=== PATIENT | male | born 1960 | race Hispanic/Latino ===

== ENCOUNTER 2024-04-21 13:10 | Inpatient (IN) | payer SELFPAY ==
[2024-04-21] VITALS (13 sets, daily range): BP systolic 120–151; BP diastolic 63–99; PULSE 78–132; RESP 16–32; TEMP 37.2–37.3; O2SAT 93–98; BMI 27.1
--- NOTE | 2024-04-21 14:18 | EDS_ITS ---
HPI History of Present Illness Chief Complaint: General Illness Narrative Narrative: Chief complaint and HPI: Cough and flulike symptoms. 63-year-old male with no significant past medical history presents for evaluation of cough and flulike symptoms. patient states for the past 8 days he has been having cough, body aches, sore throat, headache. He states that he was seen at an outlying facility and tested for COVID, flu, RSV which was negative patient states he has been taking Tylenol and ibuprofen as needed. He has not taken anything for the cough. Patient states that his cough is not improved which is why he presents today. He denies any fever, chills, chest pain, shortness of breath abdominal pain, nausea, vomiting, dysuria. Review of systems: See HPI Medications: As listed on the chart Allergies: As listed on the chart PFSH: Per chart Vital signs: As listed on the chart. Reviewed. Physical exam: Gen: A&O x3, NAD Head: Normocephalic, atraumatic Eyes: No sclera icterus, conjunctiva clear, PERRL, EOMI ENT: TMs clear BL, moist mucous membranes, posterior oropharynx unremarkable, uvula midline, tonsils not enlarged, no tonsillar exudates Neck: Trachea midline, No JVD, Full ROM, No meningismus CV: RRR, no murmurs, no peripheral edema Resp: Lungs CTA BL, no w/r/c GI: Abd soft, non-distended, non-tender, no r/r/g Musc: Full ROM, no deformity Skin: Warm, dry, no rash Neuro: Alert, oriented, grossly intact, sensation intact Psych: Cooperative, appropriate mood and affect PFS PFSH Medical History no medical history Home Medications ?Medication ?Instructions ?Recorded ?Last Taken ?Type NK 04/21/24 Unknown History Allergy/AdvReac Type Severity Reaction Status Date / Time No Known Allergies Allergy Verified 04/21/24 13:11 Social History Smoking Status: Never smoker EXAM Physical Exam Const Vital Signs: 04/21/24 13:11 04/21/24 13:32 04/21/24 15:17 Temperature 98.9 F Temperature Source Oral Pulse Rate 78 91 Respiratory Rate 16 18 Respiratory Effort Normal Non-Labored Respiratory Pattern Normal Blood Pressure 134/78 H 146/77 H Blood Pressure Mean 96 100 Pulse Ox 98 97 Oxygen Delivery Method Room Air Room Air 04/21/24 16:39 04/21/24 17:00 Temperature 99.2 F H Temperature Source Pulse Rate 128 H 124 H Respiratory Rate 25 H 25 H Respiratory Effort Respiratory Pattern Blood Pressure 120/99 H Blood Pressure Mean 106 Pulse Ox 94 94 Oxygen Delivery Method Room Air MDM MDM MDM Narrative Medical decision making narrative: 63-year-old male with no significant past medical history presents for evaluation of cough and flulike symptoms. Differential diagnosis includes but is not limited to pneumonia, influenza, COVID-19, bronchitis, other viral illness. Patient is nontoxic-appearing. Physical exam unremarkable. Given duration of symptoms will obtain basic labs as well as chest x-ray and repeat COVID, flu, RSV testing. CBC with mild leukocytosis of 12. No anemia. BMP shows mild hyponatremia without SHIRA. Patient has hyperglycemia 477. Patient has no history of diabetes. With his hyperglycemia concern is for new onset diabetes. Will need to rule out DKA. Patient does not have a anion gap on his BMP but his bicarb is low. NS bolus ordered with 5 units IV insulin. VBG, acetone, UA, hemoglobin A1c ordered. Hemoglobin A1c is 10.6. Patient has diabetes. UA is positive for glucose and ketones. Negative for UTI. Small acetone level. Patient's VBG shows a pH of 7.28, bicarb 14. This is consistent with DKA. Repeat glucose downtrending at 306. Given patient's improving glucose as well as nonanion gap we will withhold insulin drip at this time. Patient is positive for influenza. Chest x-ray shows concern for pneumonia. It may be secondary to patient's influenza however given the duration of symptoms cannot rule out bacterial infection therefore Rocephin and azithromycin ordered for community- acquired pneumonia. Patient will warrant admission for his new onset diabetes with DKA. He confirmed understand the plan. Patient was discussed with Dr. Caballero the hospitalist. She agrees with withholding insulin drip at this time. She recommended getting repeat BMP to assess if patient should be placed in ICU or PCU. Patient became tachycardic into the 120s. His temperature is increasing. Tylenol ordered with EKG. Patient not having any chest pain. EKG reviewed see below. Repeat BMP shows nonanion gap acidosis with improvement in glucose. Hospice service was recontacted and patient was discussed with Dr. Caballero. Per Dr. Caballero, Dr. Quan accepted admission. He would like insulin drip as well as ICU admission. Patient will be transferred to the ICU and insulin drip will be started. EKG: Interpreted by me/EM physician: EKG shows sinus tachycardia with heart rate 125. No acute ischemic changes Diagnostic: Interpreted by me/EM physician: Right lower lung infiltrate concerning for pneumonia Impression: 1. New onset diabetes with DKA 2. Influenza infection 3. Pneumonia 4. Mild dehydration/hyponatremia Lab Data Labs: Laboratory Results - last 24 hr 04/21/24 04/21/24 04/21/24 14:25 15:35 15:48 WBC 12.0 H RBC 4.84 Hgb 14.2 Hct 41.3 MCV 85.3 MCH 29.3 MCHC 34.4 RDW Std Deviation 39.0 RDW Coeff of Gertrudis 12.5 Plt Count 442 MPV 10.1 Immature Gran % (Auto) 1.000 H Neut % (Auto) 77.2 H Lymph % (Auto) 10.2 L [place] % (Auto) 11.1 H Eos % (Auto) 0.0 Baso % (Auto) 0.5 Absolute Neuts (auto) 9.2 H Absolute Lymphs (auto) 1.22 Nucleated RBC % 0 Sodium 131 L Potassium 3.9 Chloride 102 Carbon Dioxide 14.0 L Anion Gap 15 BUN 19 H Creatinine 0.99 Estim Creat Clear Calc 66.07 Est GFR (MDRD) Af Amer 98 Est GFR (MDRD) Non-Af 81 BUN/Creatinine Ratio 19.1 Glucose 477 H* Hemoglobin A1c 10.6 H Serum Osmolality 342 H Calcium 10.0 Urine Color Yellow Urine Clarity Clear Urine pH 6.0 Ur Specific [place] 1.015 Urine Protein 30 H Urine Glucose (UA) 1000 H Urine Ketones 150 A* Urine Occult Blood 10 H Urine Nitrite Negative Urine Bilirubin Negative Urine Urobilinogen Normal Ur Leukocyte Esterase Negative Urine RBC 0-5 SEEN Urine WBC 0 SEEN Ur Squamous Epith Cells 0-5 SEEN Urine Bacteria 0 SEEN Urine Mucus 0 SEEN Acetone Level SMALL H POC Glucose 04/21/24 16:45 WBC RBC Hgb Hct MCV MCH MCHC RDW Std Deviation RDW Coeff of Gertrudis Plt Count MPV Immature Gran % (Auto) Neut % (Auto) Lymph % (Auto) [place] % (Auto) Eos % (Auto) Baso % (Auto) Absolute Neuts (auto) Absolute Lymphs (auto) Nucleated RBC % Sodium Potassium Chloride Carbon Dioxide Anion Gap BUN Creatinine Estim Creat Clear Calc Est GFR (MDRD) Af Amer Est GFR (MDRD) Non-Af BUN/Creatinine Ratio Glucose Hemoglobin A1c Serum Osmolality Calcium Urine Color Urine Clarity Urine pH Ur Specific [place] Urine Protein Urine Glucose (UA) Urine Ketones Urine Occult Blood Urine Nitrite Urine Bilirubin Urine Urobilinogen Ur Leukocyte Esterase Urine RBC Urine WBC Ur Squamous Epith Cells Urine Bacteria Urine Mucus Acetone Level POC Glucose 324 H ABG Data ABG results: ABG 04/21/24 15:59 Specimen Type BALA Sample Site Not entered VBG pH 7.28 L VBG pO2 43 H VBG HCO3 14 L VBG Total CO2 15 L VBG O2 Sat (Calc) 72 H VBG Base Excess -12 L POC Mix VBG pCO2 Pt Tmp 31.0 L O2 Delivery Device Not entered Radiography Diagnostic Testing: Clinical Impression(s) from Imaging Studies Chest X-Ray 04/21/24 14:45 IMPRESSION: Patchy airspace disease of the right lower lung field could be pneumonia. Reading Location: [facility] Discharge Plan Disposition Disposition: Acute Care Hospital [facility] Discharge Date/Time: 04/21/24 19:59
--- NOTE | 2024-04-21 14:45 | RAD_ITS ---
EXAM: XR Chest, 2 Views CLINICAL INDICATION: TECHNIQUE: Frontal and lateral views of the chest. COMPARISON: No relevant prior studies available. FINDINGS: LUNGS AND PLEURAL SPACES: Patchy airspace disease of the right lower lung field could be pneumonia. No pneumothorax. HEART: Unremarkable. No cardiomegaly. MEDIASTINUM: Unremarkable. Normal mediastinal contour. BONES/JOINTS: Unremarkable. No acute fracture. RAD/Chest PA and Lateral IMPRESSION: Patchy airspace disease of the right lower lung field could be pneumonia. [facility]
[2024-04-21 14:57] LABS: Absolute Lymphocyte Count 1.22 X10^3/uL (0.83-4.51); Absolute Neutrophil Count 9.2 X10^3/uL (2.0-7.7); Basophil# 0.06 X10^3/uL; Basophil% 0.5 % (0-1); Hematocrit 41.3 % (40-54); Hemoglobin 14.2 g/dL (13.0-16.5); Lymphocyte # 1.22 X10^3/ul (0.83-4.51); Lymphocyte % 10.2 % (19-41); Mean Corp Hgb Conc 34.4 g/dL (32-36); Mean Corpuscular Hgb 29.3 pg (27.0-32.0); Mean Corpuscular Volume 85.3 fL (80-94); Mean Platelet Vol. 10.1 fl (6.2-12.0); Monocyte# 1.33 X10^3/uL; Monocyte% 11.1 % (0-10); NRBC Flagged by Analyzer 0 % (0-5); Neutrophil # 9.23 X10^3/uL (2.7-7.7); Neutrophil % 77.2 % (47-70); Platelet Count 442 K/mm3 (150-450); RBC Distribution Width CV 12.5 % (11.6-14.6); Red Blood Count 4.84 M/mm3 (4.6-6.2)
[2024-04-21 14:58] LABS: Anion Gap 15 (5-15); BUN 19 mg/dL (7-18); BUN/Creat Ratio 19.1 RATIO (10-20); Chloride 102 mmol/L (98-107); Creatinine, Serum 0.99 mg/dL (0.70-1.30); EST Glomerular Filtration Rate 81 mL/min (>60); Est Glom Filt Rate - Afr Amer 98 mL/min (>60); Estimated Creatinine Clearance 66.07 ml/min; Glucose 477 mg/dL (74-106); Potassium 3.9 mmol/L (3.5-5.1); Sodium Level 131 mmol/L (136-145)
[2024-04-21] MEDS: 0.9% Normal Saline (1000mL) 1,000 ML 1000 ML IV (15:35)
[2024-04-21 15:53] LABS: Bacteria 0 SEEN /hpf (None Seen); Mucous, Urine 0 SEEN /hpf (<or=2+); White Blood Cells 0 SEEN /hpf (0-5)
[2024-04-21] MEDS: Insulin Lispro 100 UNIT/ML VIAL (ADMELOG) IV (15:59)
[2024-04-21 16:02] LABS: Color, Urine Yellow (Yellow); Glucose, Dipstick 1000 mg/dl (Normal); Leukocyte Esterase-Dipstick Negative /ul (Negative); Nitrite-Dipstick Negative (Negative); Occult Blood-Urine 10 /ul (Negative); Protein-Dipstick 30 mg/dl (Negative); Specific Gravity, Urine 1.015 (1.002-1.030); Urine Bilirubin Dipstick Negative (Negative); Urine Clarity Clear (Clear); Urine Urobilinogen Normal (Normal)
[2024-04-21 16:03] LABS: Blood Gas Specimen Type VEN; O2 Delivery Device Not entered; SITE Not entered; VBG BASE EXCESS -12 mmol/L (-1.0-3.5); VBG Bicarbonate 14 mmol/L (22-26); VBG PO2 43 mmHg (25-40); VBG SO2 72 % (50-70); VBG TCO2 15 mmol/L (23-33); VBG pH 7.28 (7.32-7.42)
[2024-04-21 16:15] LABS: Ketone-Dipstick 150 mg/dl (Negative)
[2024-04-21 16:23] LABS: Red Blood Cells-Urine 0-5 SEEN /hpf (0-5); Squamous Epithelial Cells - UA 0-5 SEEN /hpf (0-5)
[2024-04-21 16:46] LABS: Hemoglobin A1c 10.6 % (3.8-5.6)
[2024-04-21 17:04] LABS: Bedside Glucose 324 mg/dL (74-106)
--- NOTE | 2024-04-21 17:05 | EKG12_ITS ---
Test Reason : REPEAT Blood Pressure : */* mmHG Vent. Rate : 125 BPM Atrial Rate : 125 BPM P-R Int : 126 ms QRS Dur : 70 ms QT Int : 270 ms P-R-T Axes : 65 67 41 degrees QTcB Int : 389 ms Sinus tachycardia Otherwise normal ECG Confirmed by ZOYA RHODES, TAMIA ([id number]), editor continuity and script CECY GOYAL ([id number]) on 04/23/2024 7:07:04 AM Referred By: Confirmed By: TAMIA KENNY MD
[2024-04-21] MEDS: Acetaminophen 500 MG Tablet 1000 MG PO (17:10)
[2024-04-21] MEDS: Ceftriaxone 1 GM/50 ML BAG IV (17:13)
--- NOTE | 2024-04-21 17:20 | HP.PCM.HOS_ITS ---
HPI - General General Date of Admission: 04/21/24 Date of Service: 04/21/24 Chief Complaint: fever, cough, flulike symptoms for 9 days HPI Narrative ROSY STOCKTON, is a 63 M came to ED with URI symptoms of cough fever flulike symptoms for 9 days. Patient has limited understanding of [place] language mainly Irish language. He has never been diagnosed with diabetes and does not know about diabetes. Patient is coughing up yellowish thick sputum getting worse in 9 days. Mild nausea and sometimes vomiting. In ED, he was found sinus tachycardia, flu positive. Also found in DKA with glucose of 477, anion gap 15 and bicarb 14. Patient is being admitted in ICU [facility] Medical History no medical history Home Medications ?Medication ?Instructions ?Recorded ?Last Taken ?Type NK 04/21/24 Unknown History Allergy/AdvReac Type Severity Reaction Status Date / Time No Known Allergies Allergy Verified 04/21/24 13:11 Social History Smoking Status: Never smoker ROS ROS Narrative Constitutional: Reports fatigue and weakness. No fever. HEENT: Reports systems reviewed and no addt'l complaints, except as documented Respiratory/Chest: URI and mild shortness of breath CVS: Denies cardiac disease or chronic lung disease. Denies smoking Gastrointestinal: No mild nausea and vomiting. Mild epigastric pain. Genitourinary: Denies burning urination or new urinary tract symptoms Musculoskeletal: Denies acute joint pain or limited range of motion. No acute injury Neurologic: Denies seizure-like symptoms. skin: No ulcer. No rash Endocrinology: Reports systems reviewed and no addt'l complaints, except as documented Hematologic/Lymphatic: Reports systems reviewed and no addt'l complaints, except as documented Rest 14 ROS are negative except as mentioned in HPI Vital Signs Vital Signs Vital Signs: 04/21/24 13:11 04/21/24 13:32 04/21/24 15:17 Temperature 98.9 F Temperature Source Oral Pulse Rate 78 91 Respiratory Rate 16 18 Respiratory Effort Normal Non-Labored Respiratory Pattern Normal Blood Pressure 134/78 H 146/77 H Blood Pressure Mean 96 100 Pulse Ox 98 97 Oxygen Delivery Method Room Air Room Air 04/21/24 16:39 04/21/24 17:00 Temperature 99.2 F H Temperature Source Pulse Rate 128 H 124 H Respiratory Rate 25 H 25 H Respiratory Effort Respiratory Pattern Blood Pressure 120/99 H Blood Pressure Mean 106 Pulse Ox 94 94 Oxygen Delivery Method Room Air Weight Weight: 148 lb Body Mass Index (BMI) 27.1 Physical Exam Narrative General: Alert, Oriented x3, Cooperative, BMI 27.1 kg/m? HEENT: Atraumatic, PERRLA, EOMI, Normocephalic Oral: Oral mucosa dry no Gingival or Mucosal Lesions/ Ulcerations Neck: Supple, No JVD, Negative Carotid Bruits Chest wall/Lungs: Air entry diminished in bilateral lung bases. No crepitation/rhonchi Cardiovascular: Sinus tachycardia, normal S1, Normal S2, No M/G/R Abdomen: Bowel Sounds Present, Soft, mild epigastric tenderness, Non-Distended : No dysuria. No renal angle tenderness. No suprapubic tenderness. Extremities: No edema, Capillary Refill Less than 3 Seconds Skin: No rashes, No breakdown Musculoskeletal: No Tenderness to Palpation of Joints or Extremities Neurological: Cranial nerves II-XII grossly intact, DTR 2+/4. No acute focal neurological deficit. Psych/Mental Status: Flat Results Lab / Micro Data 04/21/24 14:25 04/21/24 14:25 Labs: Laboratory Results - last 24 hr 04/21/24 14:25: WBC 12.0 H, RBC 4.84, Hgb 14.2, Hct 41.3, MCV 85.3, MCH 29.3, MCHC 34.4, RDW Std Deviation 39.0, RDW Coeff of Gertrudis 12.5, Plt Count 442, MPV 10.1, Immature Gran % (Auto) 1.000 H, Neut % (Auto) 77.2 H, Lymph % (Auto) 10.2 L, [place] % (Auto) 11.1 H, Eos % (Auto) 0.0, Baso % (Auto) 0.5, Absolute Neuts (auto) 9.2 H, Absolute Lymphs (auto) 1.22, Nucleated RBC % 0, Sodium 131 L, Potassium 3.9, Chloride 102, Carbon Dioxide 14.0 L, Anion Gap 15, BUN 19 H, Creatinine 0.99, Estim Creat Clear Calc 66.07, Est GFR (MDRD) Af Amer 98, Est GFR (MDRD) Non-Af 81, BUN/Creatinine Ratio 19.1, Glucose 477 H*, Hemoglobin A1c 10.6 H, Calcium 10.0 04/21/24 15:35: Acetone Level SMALL H 04/21/24 15:48: Urine Color Yellow, Urine Clarity Clear, Urine pH 6.0, Ur Specific [place] 1.015, Urine Protein 30 H, Urine Glucose (UA) 1000 H, Urine Ketones 150 A*, Urine Occult Blood 10 H, Urine Nitrite Negative, Urine Bilirubin Negative, Urine Urobilinogen Normal, Ur Leukocyte Esterase Negative, Urine RBC 0-5 SEEN, Urine WBC 0 SEEN, Ur Squamous Epith Cells 0-5 SEEN, Urine Bacteria 0 SEEN, Urine Mucus 0 SEEN 04/21/24 16:45: POC Glucose 324 H Micro: Microbiology 04/21/24 14:40 Mucosa - Nose SARS-CoV-2, Influenza & RSV (PCR) - Final Influenzae A ABG Data ABG results: ABG 04/21/24 15:59 Specimen Type BALA Sample Site Not entered VBG pH 7.28 L VBG pO2 43 H VBG HCO3 14 L VBG Total CO2 15 L VBG O2 Sat (Calc) 72 H VBG Base Excess -12 L POC Mix VBG pCO2 Pt Tmp 31.0 L O2 Delivery Device Not entered Imaging Radiology Impression Chest X-Ray 04/21/24 14:45 IMPRESSION: Patchy airspace disease of the right lower lung field could be pneumonia. Reading Location: [facility] Assessment & Plan Assessment/Plan (1) DKA (diabetic ketoacidoses): (2) Influenza A: PLAN: Plan This atrial gentleman is being admitted for DKA, probably precipitated by influenza A 1. Undiagnosed diabetes mellitus, unclear classification and type with DKA: Patient is being admitted in ICU. IV fluid protocol and insulin drip as per DKA protocol. Anion gap is 15, bicarb 14. VBG shows 7.28/mixed pCO2 15 suggestive of DKA. Serum acetone positive. 2. Influenza A: Chest x-ray initially reviewed and shows patchy airspace disease in right lower lung field. Pneumonia workup. Patient started on Tamiflu to reduce the duration and severity of symptoms. On IV ceftriaxone and azithromycin. Pneumonia workup. 3. Mild abdominal pain and nausea and vomiting probably due to DKA: PPI ordered 4. DVT prophylaxis, moderate risk: Lovenox 40 m subcu daily ordered. Living will/advanced directive/end of life care: Patient does not have living will or advanced directive. After discussion of benefits/risks procedures involved with full code, DNR CC arrest and DNR CC, the patient opted for full code. Patient does want artificial life support including intubation, tube feed, ventilator and/chest compression, central venous catheter, vasopressor and DC shock if needed Total time spent in [id number] encounter in discussion of advanced directive 17 minutes. Microbiology Past 72 Hours 04/21/24 14:40 Mucosa - Nose SARS-CoV-2, Influenza & RSV (PCR) - Final Influenzae A Laboratory Results 04/21/24 14:25: WBC 12.0 H, RBC 4.84, Hgb 14.2, Hct 41.3, MCV 85.3, MCH 29.3, MCHC 34.4, RDW Std Deviation 39.0, RDW Coeff of Gertrudis 12.5, Plt Count 442, MPV 10.1, Immature Gran % (Auto) 1.000 H, Neut % (Auto) 77.2 H, Lymph % (Auto) 10.2 L, [place] % (Auto) 11.1 H, Eos % (Auto) 0.0, Baso % (Auto) 0.5, Absolute Neuts (auto) 9.2 H, Absolute Lymphs (auto) 1.22, Nucleated RBC % 0, Sodium 131 L, Potassium 3.9, Chloride 102, Carbon Dioxide 14.0 L, Anion Gap 15, BUN 19 H, Creatinine 0.99, Estim Creat Clear Calc 66.07, Est GFR (MDRD) Af Amer 98, Est GFR (MDRD) Non-Af 81, BUN/Creatinine Ratio 19.1, Glucose 477 H*, Hemoglobin A1c 10.6 H, Calcium 10.0 04/21/24 15:35: Acetone Level SMALL H 04/21/24 15:48: Urine Color Yellow, Urine Clarity Clear, Urine pH 6.0, Ur Specific [place] 1.015, Urine Protein 30 H, Urine Glucose (UA) 1000 H, Urine Ketones 150 A*, Urine Occult Blood 10 H, Urine Nitrite Negative, Urine Bilirubin Negative, Urine Urobilinogen Normal, Ur Leukocyte Esterase Negative, Urine RBC 0-5 SEEN, Urine WBC 0 SEEN, Ur Squamous Epith Cells 0-5 SEEN, Urine Bacteria 0 SEEN, Urine Mucus 0 SEEN 04/21/24 15:59: Specimen Type BALA, Sample Site Not entered, VBG pH 7.28 L, VBG pO2 43 H, VBG HCO3 14 L, VBG Total CO2 15 L, VBG O2 Sat (Calc) 72 H, VBG Base Excess -12 L, POC Mix VBG pCO2 Pt Tmp 31.0 L, O2 Delivery Device Not entered 04/21/24 16:45: POC Glucose 324 H 04/21/24 17:17: Sodium Pending, Potassium Pending, Chloride Pending, Carbon Dioxide Pending, Anion Gap Pending, BUN Pending, Creatinine Pending, Est GFR (MDRD) Af Amer Pending, Est GFR (MDRD) Non-Af Pending, BUN/Creatinine Ratio Pending, Glucose Pending, Calcium Pending, Magnesium Pending Clinical Impression(s) from Imaging Studies Chest X-Ray 04/21/24 14:45 IMPRESSION: Patchy airspace disease of the right lower lung field could be pneumonia. Charges/Coding Visit Charges Inpatient E&M: 32141 Init Hosp L3 Procedures Hospitalists Procedures: 11244 Advncd Care Plan 30 Min
[2024-04-21 17:48] LABS: Anion Gap 12 (5-15); BUN 16 mg/dL (7-18); BUN/Creat Ratio 17.2 RATIO (10-20); Calcium,Total 9.2 mg/dL (8.5-10.1); Chloride 108 mmol/L (98-107); Creatinine, Serum 0.93 mg/dL (0.70-1.30); EST Glomerular Filtration Rate 88 mL/min (>60); Est Glom Filt Rate - Afr Amer 106 mL/min (>60); Estimated Creatinine Clearance 70.33 ml/min; Glucose 318 mg/dL (74-106); Magnesium 2.3 mg/dL (1.6-2.6); Potassium 4.5 mmol/L (3.5-5.1); Sodium Level 134 mmol/L (136-145)
[2024-04-21] MEDS: Azithromycin 500 MG in 0.9% Normal Saline (250mL Bag) 250 ML 255 MG IV (17:59)
[2024-04-21 18:29] LABS: Phosphorus 1.7 mg/dL (2.5-4.9)
[2024-04-21] MEDS: Insulin Lispro 100 UNIT in 0.9% Normal Saline (100mL Bag) 99 ML 6.7 UNIT CONT INF (19:28)
--- NOTE | 2024-04-21 19:30 | ED.RN ---
This RN verified with Libertad Christianson RN insulin start drip titration. This RN also double checked with Dr Wilkinson that the drip was appropriate at 6.7ml/hr due to patient BG 306. Dr Wilkinson stated to watch his blood sugars closely.
[2024-04-21 19:35] LABS: Osmolality, Serum 342 mOsm/KG (280-301)
[2024-04-21 19:36] LABS: Bedside Glucose 306 mg/dL (74-106)
[2024-04-21 20:41] LABS: Bedside Glucose 227 mg/dL (74-106)
[2024-04-21] MEDS: Oseltamivir Phosphate 75 MG Capsule PO (20:44)
[2024-04-21] MEDS: guaiFENesin 1,200 MG Tablet 1200 MG PO (20:44)
[2024-04-21] MEDS: Dext 5%-0.45% NS 1,000 ML 150 ML IV (20:48)
[2024-04-21] MEDS: Pantoprazole Sodium 40 MG in 0.9% Normal Saline (100mL MB+) 100 ML 330 MG IV (20:49)
[2024-04-21] MEDS: Enoxaparin 40 MG/0.4 ML Syringe SC (20:56)
[2024-04-21 21:24] LABS: Bedside Glucose 200 mg/dL (74-106)
[2024-04-21 21:44] LABS: Anion Gap 10 (5-15); BUN 15 mg/dL (7-18); BUN/Creat Ratio 23.3 RATIO (10-20); Calcium,Total 9.3 mg/dL (8.5-10.1); Chloride 112 mmol/L (98-107); Creatinine, Serum 0.64 mg/dL (0.70-1.30); EST Glomerular Filtration Rate 134 mL/min (>60); Est Glom Filt Rate - Afr Amer 162 mL/min (>60); Estimated Creatinine Clearance 93.61 ml/min; Glucose 213 mg/dL (74-106); Potassium 4.1 mmol/L (3.5-5.1); Sodium Level 137 mmol/L (136-145)
[2024-04-21 22:24] LABS: Bedside Glucose 218 mg/dL (74-106)
[2024-04-21 23:18] LABS: Bedside Glucose 218 mg/dL (74-106)
[2024-04-22] VITALS (15 sets, daily range): BP systolic 125–166; BP diastolic 66–88; PULSE 86–118; RESP 10–25; TEMP 36.6–37.3; O2SAT 93–99; BMI 20.5
[2024-04-22 00:18] LABS: Bedside Glucose 195 mg/dL (74-106)
[2024-04-22 00:36] LABS: Anion Gap 8 (5-15); BUN 15 mg/dL (7-18); BUN/Creat Ratio 20.4 RATIO (10-20); Calcium,Total 9.5 mg/dL (8.5-10.1); Chloride 111 mmol/L (98-107); Creatinine, Serum 0.74 mg/dL (0.70-1.30); EST Glomerular Filtration Rate 115 mL/min (>60); Est Glom Filt Rate - Afr Amer 139 mL/min (>60); Estimated Creatinine Clearance 80.96 ml/min; Glucose 192 mg/dL (74-106); Potassium 3.2 mmol/L (3.5-5.1); Sodium Level 137 mmol/L (136-145)
[2024-04-22] MEDS: Potassium Chloride 10mEq/100mL 10 MEQ/100 ML IV.SOLN. 100 MEQ IV BOLUS ×4 (00:58→03:42)
[2024-04-22 01:22] LABS: Bedside Glucose 192 mg/dL (74-106)
[2024-04-22 02:21] LABS: Bedside Glucose 155 mg/dL (74-106)
[2024-04-22] MEDS: Dext 5%-0.45% NS 1,000 ML 150 ML IV (02:43)
[2024-04-22 03:18] LABS: Bedside Glucose 172 mg/dL (74-106)
[2024-04-22] MEDS: Acetaminophen 325 MG Tablet 650 MG PO ×2 (04:00→21:10)
[2024-04-22 04:17] LABS: Bedside Glucose 155 mg/dL (74-106)
[2024-04-22 04:48] LABS: Absolute Lymphocyte Count 0.88 X10^3/uL (0.83-4.51); Absolute Neutrophil Count 13.2 X10^3/uL (2.0-7.7); Basophil% 0.6 % (0-1); Hematocrit 37.1 % (40-54); Lymphocyte # 0.88 X10^3/ul (0.83-4.51); Lymphocyte % 5.6 % (19-41); Mean Corpuscular Hgb 29.1 pg (27.0-32.0); Mean Platelet Vol. 9.6 fl (6.2-12.0); Monocyte# 1.36 X10^3/uL; Monocyte% 8.7 % (0-10); NRBC Flagged by Analyzer 0 % (0-5); Neutrophil # 13.22 X10^3/uL (2.7-7.7); Neutrophil % 84.4 % (47-70); Platelet Count 430 K/mm3 (150-450); RBC Distribution Width CV 12.5 % (11.6-14.6); RBC Distribution Width SD 38.1 fl (35.1-43.9); Red Blood Count 4.47 M/mm3 (4.6-6.2); White Blood Count 15.7 K/mm3 (4.4-11.0)
[2024-04-22 05:07] LABS: Anion Gap 8 (5-15); BUN 13 mg/dL (7-18); BUN/Creat Ratio 22.1 RATIO (10-20); Calcium,Total 9.3 mg/dL (8.5-10.1); Chloride 111 mmol/L (98-107); Creatinine, Serum 0.59 mg/dL (0.70-1.30); EST Glomerular Filtration Rate 149 mL/min (>60); Est Glom Filt Rate - Afr Amer 180 mL/min (>60); Estimated Creatinine Clearance 101.54 ml/min; Glucose 157 mg/dL (74-106); Potassium 3.2 mmol/L (3.5-5.1); Sodium Level 136 mmol/L (136-145)
[2024-04-22 05:26] LABS: Bedside Glucose 148 mg/dL (74-106)
[2024-04-22 06:20] LABS: Bedside Glucose 225 mg/dL (74-106)
[2024-04-22 07:13] LABS: Bedside Glucose 228 mg/dL (74-106)
[2024-04-22 08:24] LABS: Bedside Glucose 221 mg/dL (74-106)
[2024-04-22] MEDS: Insulin Glargine-YFGN 100 UNIT/ML Pen 10 UNIT SC ×2 (09:01→21:17)
[2024-04-22] MEDS: KCL 40mEq in 0.9% NS 40 MEQ/1,000 ML IV.SOLN 100 MEQ IV (09:02)
[2024-04-22] MEDS: Na Biphos/Potassium Phosphate PACKET 1 PACKET PO ×3 (09:02→21:11)
--- NOTE | 2024-04-22 09:46 | PN.HOSP_ITS ---
Reason for Visit Reason for Visit: Diagnoses Type 2 diabetes mellitus with ketoacidosis without coma (04/21/24) Influenza due to other identified influenza virus with other respiratory manifestations (04/21/24) Objective Data Objective Data Vital Signs: Vital Signs Temp Pulse Resp BP Pulse Ox O2 Del Method 98.2 F 92 18 141/66 H 94 Room Air 04/22/24 06:07 04/22/24 06:07 04/22/24 06:07 04/22/24 06:07 04/22/24 06:07 04/22/24 06:07 Oxygen Delivery Method Room Air Weight: 123 lb 0.287 oz Body Mass Index (BMI) 20.5 Intake & Output: Intake and Output for Last 24 Hours 04/20/24 04/21/24 04/22/24 23:59 23:59 23:59 Intake Total 1427.57 / 1427.57 2435.33 / 2435.33 Balance 1427.57 / 1427.57 2435.33 / 2435.33 Lab / Micro Data 04/22/24 04:31 04/22/24 04:31 Labs: Laboratory Results - last 24 hr 04/21/24 14:25: WBC 12.0 H, RBC 4.84, Hgb 14.2, Hct 41.3, MCV 85.3, MCH 29.3, MCHC 34.4, RDW Std Deviation 39.0, RDW Coeff of Gertrudis 12.5, Plt Count 442, MPV 10.1, Immature Gran % (Auto) 1.000 H, Neut % (Auto) 77.2 H, Lymph % (Auto) 10.2 L, [place] % (Auto) 11.1 H, Eos % (Auto) 0.0, Baso % (Auto) 0.5, Absolute Neuts (auto) 9.2 H, Absolute Lymphs (auto) 1.22, Nucleated RBC % 0, Sodium 131 L, Potassium 3.9, Chloride 102, Carbon Dioxide 14.0 L, Anion Gap 15, BUN 19 H, Creatinine 0.99, Estim Creat Clear Calc 66.07, Est GFR (MDRD) Af Amer 98, Est GFR (MDRD) Non-Af 81, BUN/Creatinine Ratio 19.1, Glucose 477 H*, Hemoglobin A1c 10.6 H, Calcium 10.0 04/21/24 15:35: Serum Osmolality 342 H, Acetone Level SMALL H 04/21/24 15:48: Urine Color Yellow, Urine Clarity Clear, Urine pH 6.0, Ur Specific [place] 1.015, Urine Protein 30 H, Urine Glucose (UA) 1000 H, Urine Ketones 150 A*, Urine Occult Blood 10 H, Urine Nitrite Negative, Urine Bilirubin Negative, Urine Urobilinogen Normal, Ur Leukocyte Esterase Negative, Urine RBC 0-5 SEEN, Urine WBC 0 SEEN, Ur Squamous Epith Cells 0-5 SEEN, Urine Bacteria 0 SEEN, Urine Mucus 0 SEEN 04/21/24 16:45: POC Glucose 324 H 04/21/24 17:17: Sodium 134 L, Potassium 4.5, Chloride 108 H, Carbon Dioxide 13.0 L, Anion Gap 12, BUN 16, Creatinine 0.93, Estim Creat Clear Calc 70.33, Est GFR (MDRD) Af Amer 106, Est GFR (MDRD) Non-Af 88, BUN/Creatinine Ratio 17.2, Glucose 318 H, Calcium 9.2, Phosphorus 1.7 L, Magnesium 2.3 04/21/24 19:15: POC Glucose 306 H 04/21/24 20:21: POC Glucose 227 H 04/21/24 21:00: Sodium 137, Potassium 4.1, Chloride 112 H, Carbon Dioxide 15.0 L , Anion Gap 10, BUN 15, Creatinine 0.64 L, Estim Creat Clear Calc 93.61, Est GFR (MDRD) Af Amer 162, Est GFR (MDRD) Non-Af 134, BUN/Creatinine Ratio 23.3 H, G lucose 213 H, Calcium 9.3 04/21/24 21:01: POC Glucose 200 H 04/21/24 21:54: POC Glucose 218 H 04/21/24 23:00: POC Glucose 218 H 04/21/24 23:59: POC Glucose 195 H 04/22/24 00:10: Sodium 137, Potassium 3.2 L, Chloride 111 H, Carbon Dioxide 18.0 L, Anion Gap 8, BUN 15, Creatinine 0.74, Estim Creat Clear Calc 80.96, Est GFR (MDRD) Af Amer 139, Est GFR (MDRD) Non-Af 115, BUN/Creatinine Ratio 20.4 H, G lucose 192 H, Calcium 9.5 04/22/24 01:03: POC Glucose 192 H 04/22/24 02:02: POC Glucose 155 H 04/22/24 02:59: POC Glucose 172 H 04/22/24 03:58: POC Glucose 155 H 04/22/24 04:31: WBC 15.7 H, RBC 4.47 L, Hgb 13.0, Hct 37.1 L, MCV 83.0, MCH 29.1, MCHC 35.0, RDW Std Deviation 38.1, RDW Coeff of Gertrudis 12.5, Plt Count 430, MPV 9.6, Immature Gran % (Auto) 0.700, Neut % (Auto) 84.4 H, Lymph % (Auto) 5.6 L, [place] % (Auto) 8.7, Eos % (Auto) 0.0, Baso % (Auto) 0.6, Absolute Neuts (auto) 13.2 H, Absolute Lymphs (auto) 0.88, Nucleated RBC % 0, Sodium 136, Potassium 3.2 L, Chloride 111 H, Carbon Dioxide 18.0 L, Anion Gap 8, BUN 13, Creatinine 0.59 L, Estim Creat Clear Calc 101.54, Est GFR (MDRD) Af Amer 180, Est GFR (MDRD) Non-Af 149, BUN/Creatinine Ratio 22.1 H, Glucose 157 H, Calcium 9.3 04/22/24 04:58: POC Glucose 148 H 04/22/24 06:00: POC Glucose 225 H 04/22/24 06:55: POC Glucose 228 H 04/22/24 08:05: POC Glucose 221 H Micro: Microbiology 04/22/24 01:07 Nasal Secretion MRSA (PCR) - Final 04/21/24 14:40 Mucosa - Nose SARS-CoV-2, Influenza & RSV (PCR) - Final Influenzae A ABG Data ABG results: ABG 04/21/24 15:59 Specimen Type BALA Sample Site Not entered VBG pH 7.28 L VBG pO2 43 H VBG HCO3 14 L VBG Total CO2 15 L VBG O2 Sat (Calc) 72 H VBG Base Excess -12 L POC Mix VBG pCO2 Pt Tmp 31.0 L O2 Delivery Device Not entered Radiography Diagnostic Testing: Radiology Impression Chest X-Ray 04/21/24 14:45 IMPRESSION: Patchy airspace disease of the right lower lung field could be pneumonia. Reading Location: [facility] Physical Exam Narrative Patient stated he vomited twice at home. He was dehydrated. Complain of right lower chest pain on coughing, pleuritic chest pain Denies a smoking or marijuana. Physical exam General: Alert, Oriented x3, Cooperative, BMI 27.1 kg/m? HEENT: Atraumatic, PERRLA, EOMI, Normocephalic Oral: Oral mucosa dry no Gingival or Mucosal Lesions/ Ulcerations Neck: Supple, No JVD, Negative Carotid Bruits Chest wall/Lungs: Air entry diminished in bilateral lung bases. No crepitation/rhonchi Cardiovascular: Sinus tachycardia, normal S1, Normal S2, No M/G/R Abdomen: Bowel Sounds Present, Soft, mild epigastric tenderness, Non-Distended : No dysuria. No renal angle tenderness. No suprapubic tenderness. Extremities: No edema, Capillary Refill Less than 3 Seconds Skin: No rashes, No breakdown Musculoskeletal: No Tenderness to Palpation of Joints or Extremities Neurological: Cranial nerves II-XII grossly intact, DTR 2+/4. No acute focal neurological deficit. Psych/Mental Status: Flat Assessment & Plan Assessment/Plan (1) DKA (diabetic ketoacidoses): (2) Influenza A: PLAN: Plan This atrial gentleman is being admitted for DKA, probably precipitated by influenza A 1. Undiagnosed diabetes mellitus, unclear classification and type with DKA: Patient is being admitted in ICU. IV fluid protocol and insulin drip as per DKA protocol. Anion gap is 15, bicarb 14. VBG shows 7.28/mixed pCO2 15 suggestive of DKA. Serum acetone positive. 2/5: Anion gap closed x 2. Lantus insulin is ordered and insulin dropped to [place] for 4 hours. 1800 ADA diet ordered. Accu-Chek before meals and at bedtime with Humalog sliding scale coverage and hypoglycemia protocol. A1c 10.6% 2. Influenza A: Chest x-ray initially reviewed and shows patchy airspace disease in right lower lung field. Pneumonia workup. Patient started on Tamiflu to reduce the duration and severity of symptoms. On IV ceftriaxone and azithromycin. Pneumonia workup. MRSA nasal screen negative. 3. Mild abdominal pain and nausea and vomiting probably due to DKA: PPI ordered 2/5: Abdominal pain, nausea and vomiting has resolved. 4. DVT prophylaxis, moderate risk: Lovenox 40 m subcu daily ordered. Living will/advanced directive/end of life care: Patient does not have living will or advanced directive. After discussion of benefits/risks procedures involved with full code, DNR CC arrest and DNR CC, the patient opted for full code. Patient does want artificial life support including intubation, tube feed, ventilator and/chest compression, central venous catheter, vasopressor and DC shock if needed Total time spent in [id number] encounter in discussion of advanced directive 17 minutes. Microbiology Past 72 Hours 04/22/24 01:07 Nasal Secretion MRSA (PCR) - Final 04/21/24 14:40 Mucosa - Nose SARS-CoV-2, Influenza & RSV (PCR) - Final Influenzae A Laboratory Results 04/21/24 14:25: Hemoglobin A1c 10.6 H 04/21/24 15:35: Serum Osmolality 342 H, Acetone Level SMALL H 04/21/24 15:48: Urine Color Yellow, Urine Clarity Clear, Urine pH 6.0, Ur Specific [place] 1.015, Urine Protein 30 H, Urine Glucose (UA) 1000 H, Urine Ketones 150 A*, Urine Occult Blood 10 H, Urine Nitrite Negative, Urine Bilirubin Negative, Urine Urobilinogen Normal, Ur Leukocyte Esterase Negative, Urine RBC 0-5 SEEN, Urine WBC 0 SEEN, Ur Squamous Epith Cells 0-5 SEEN, Urine Bacteria 0 SEEN, Urine Mucus 0 SEEN 04/21/24 15:59: Specimen Type BALA, Sample Site Not entered, VBG pH 7.28 L, VBG pO2 43 H, VBG HCO3 14 L, VBG Total CO2 15 L, VBG O2 Sat (Calc) 72 H, VBG Base Excess -12 L, POC Mix VBG pCO2 Pt Tmp 31.0 L, O2 Delivery Device Not entered 04/21/24 16:45: POC Glucose 324 H 04/21/24 17:17: Sodium 134 L, Potassium 4.5, Chloride 108 H, Carbon Dioxide 13.0 L, Anion Gap 12, BUN 16, Creatinine 0.93, Estim Creat Clear Calc 70.33, Est GFR (MDRD) Af Amer 106, Est GFR (MDRD) Non-Af 88, BUN/Creatinine Ratio 17.2, Glucose 318 H, Calcium 9.2, Phosphorus 1.7 L, Magnesium 2.3 04/21/24 19:15: POC Glucose 306 H 04/21/24 20:21: POC Glucose 227 H 04/21/24 21:00: Sodium 137, Potassium 4.1, Chloride 112 H, Carbon Dioxide 15.0 L , Anion Gap 10, BUN 15, Creatinine 0.64 L, Estim Creat Clear Calc 93.61, Est GFR (MDRD) Af Amer 162, Est GFR (MDRD) Non-Af 134, BUN/Creatinine Ratio 23.3 H, G lucose 213 H, Calcium 9.3 04/21/24 21:01: POC Glucose 200 H 04/21/24 21:54: POC Glucose 218 H 04/21/24 23:00: POC Glucose 218 H 04/21/24 23:59: POC Glucose 195 H 04/22/24 00:10: Sodium 137, Potassium 3.2 L, Chloride 111 H, Carbon Dioxide 18.0 L, Anion Gap 8, BUN 15, Creatinine 0.74, Estim Creat Clear Calc 80.96, Est GFR (MDRD) Af Amer 139, Est GFR (MDRD) Non-Af 115, BUN/Creatinine Ratio 20.4 H, G lucose 192 H, Calcium 9.5 04/22/24 01:03: POC Glucose 192 H 04/22/24 02:02: POC Glucose 155 H 04/22/24 02:59: POC Glucose 172 H 04/22/24 03:58: POC Glucose 155 H 04/22/24 04:31: WBC 15.7 H, RBC 4.47 L, Hgb 13.0, Hct 37.1 L, MCV 83.0, MCH 29.1, MCHC 35.0, RDW Std Deviation 38.1, RDW Coeff of Gertrudis 12.5, Plt Count 430, MPV 9.6, Immature Gran % (Auto) 0.700, Neut % (Auto) 84.4 H, Lymph % (Auto) 5.6 L, [place] % (Auto) 8.7, Eos % (Auto) 0.0, Baso % (Auto) 0.6, Absolute Neuts (auto) 13.2 H, Absolute Lymphs (auto) 0.88, Nucleated RBC % 0, Sodium 136, Potassium 3.2 L, Chloride 111 H, Carbon Dioxide 18.0 L, Anion Gap 8, BUN 13, Creatinine 0.59 L, Estim Creat Clear Calc 101.54, Est GFR (MDRD) Af Amer 180, Est GFR (MDRD) Non-Af 149, BUN/Creatinine Ratio 22.1 H, Glucose 157 H, Calcium 9.3 04/22/24 04:58: POC Glucose 148 H 04/22/24 06:00: POC Glucose 225 H 04/22/24 06:55: POC Glucose 228 H 04/22/24 08:05: POC Glucose 221 H 04/22/24 11:36: POC Glucose 161 H Microbiology Past 72 Hours 04/21/24 14:40 Mucosa - Nose SARS-CoV-2, Influenza & RSV (PCR) - Final Influenzae A Laboratory Results 04/21/24 14:25: WBC 12.0 H, RBC 4.84, Hgb 14.2, Hct 41.3, MCV 85.3, MCH 29.3, MCHC 34.4, RDW Std Deviation 39.0, RDW Coeff of Gertrudis 12.5, Plt Count 442, MPV 10.1, Immature Gran % (Auto) 1.000 H, Neut % (Auto) 77.2 H, Lymph % (Auto) 10.2 L, [place] % (Auto) 11.1 H, Eos % (Auto) 0.0, Baso % (Auto) 0.5, Absolute Neuts (auto) 9.2 H, Absolute Lymphs (auto) 1.22, Nucleated RBC % 0, Sodium 131 L, Potassium 3.9, Chloride 102, Carbon Dioxide 14.0 L, Anion Gap 15, BUN 19 H, Creatinine 0.99, Estim Creat Clear Calc 66.07, Est GFR (MDRD) Af Amer 98, Est GFR (MDRD) Non-Af 81, BUN/Creatinine Ratio 19.1, Glucose 477 H*, Hemoglobin A1c 10.6 H, Calcium 10.0 04/21/24 15:35: Acetone Level SMALL H 04/21/24 15:48: Urine Color Yellow, Urine Clarity Clear, Urine pH 6.0, Ur Specific [place] 1.015, Urine Protein 30 H, Urine Glucose (UA) 1000 H, Urine Ketones 150 A*, Urine Occult Blood 10 H, Urine Nitrite Negative, Urine Bilirubin Negative, Urine Urobilinogen Normal, Ur Leukocyte Esterase Negative, Urine RBC 0-5 SEEN, Urine WBC 0 SEEN, Ur Squamous Epith Cells 0-5 SEEN, Urine Bacteria 0 SEEN, Urine Mucus 0 SEEN 04/21/24 15:59: Specimen Type BALA, Sample Site Not entered, VBG pH 7.28 L, VBG pO2 43 H, VBG HCO3 14 L, VBG Total CO2 15 L, VBG O2 Sat (Calc) 72 H, VBG Base Excess -12 L, POC Mix VBG pCO2 Pt Tmp 31.0 L, O2 Delivery Device Not entered 04/21/24 16:45: POC Glucose 324 H 04/21/24 17:17: Sodium Pending, Potassium Pending, Chloride Pending, Carbon Dioxide Pending, Anion Gap Pending, BUN Pending, Creatinine Pending, Est GFR (MDRD) Af Amer Pending, Est GFR (MDRD) Non-Af Pending, BUN/Creatinine Ratio Pending, Glucose Pending, Calcium Pending, Magnesium Pending Clinical Impression(s) from Imaging Studies Chest X-Ray 04/21/24 14:45 IMPRESSION: Patchy airspace disease of the right lower lung field could be pneumonia. Charges/Coding Visit Charges Inpatient E&M: 85652 Subs Hosp L3
[2024-04-22] MEDS: oxyCODONE 5 MG Tablet 2.5 MG PO (11:01)
--- NOTE | 2024-04-22 11:09 | CASEMGMT ---
RN ADRIENNE Assessment Face to Face with patient for initial transition planning/care coordination assessment. RN ADRIENNE introduced self and role at [facility], pt voices understanding. Pt is A&Ox4 and is resting comfortably in bed and is calm. Care providers, pharmacy, and demographics verified. Admitting dx: DKA LACE Strata: 1 PCP: No PCP. Provider list given. Pt states that he will get himself established. Specialists: Denies Preferred Pharmacy: Pt willing to use [facility] at time of DC. Pt does not have Rx benefits and per Margoth, is over income for CARLEEN. CM to follow for total Rx costs. Pt states that he should be able to afford his new medications and DM supplies. Pt states that he has a card he can use to pay for the prescriptions. Insurance: SP. Justin saw the pt and pt does not qualify for CARLEEN. Margoth reports that she has the pt set up with a payment plan through the hospital Prescription Benefit: None at this time. CM to follow. LNOK: Nivia Kenny (Niece), Dewayne (W) Living Arrangements: Pt lives with his and friend in a 2 story home with 3 steps to enter ADLs/IADLs: Reports ind. Pt works at [employer] Transportation: Self, niece. Denies concerns DME: Denies all current DME use. Pt is in the need a new DM supplies. Dr Quan refuses to sign Rx for this as he is off tomorrow and will not be the discharging MD. CM to follow for Rx signing by the new hospitalist for new BGM and supplies. HHC/SNF: Denies Hx or needs Pt?s goal: Return home Plan: Home with new DM supplies. Pt states that he feels safe returning home with his and friend once medically ready and denies further questions at this time. Pt denies the need for OP Tx or CCN. Pt states that he has a headache and minor CP. Pt RN notified. Pt thanks this RN CM and denies further concerns. CM to follow for total Rx costs as well as new DM supplies. Kenzie Everett RN, CM
[2024-04-22] MEDS: Ceftriaxone 2 GM in 0.9% Normal Saline (50mL MB+) 50 ML IV (11:31)
[2024-04-22] MEDS: guaiFENesin 1,200 MG Tablet 1200 MG PO ×2 (11:32→21:10)
[2024-04-22] MEDS: Pantoprazole Sodium 40 MG Tablet PO (11:32)
[2024-04-22] MEDS: Oseltamivir Phosphate 75 MG Capsule PO ×2 (11:33→21:10)
[2024-04-22] MEDS: Insulin Lispro 100 UNIT/ML INSULN.PEN SC ×3 (11:46→21:21)
[2024-04-22 11:54] LABS: Bedside Glucose 161 mg/dL (74-106)
[2024-04-22] MEDS: Azithromycin 500 MG in 0.9% Normal Saline (250mL Bag) 250 ML 255 MG IV (12:17)
--- NOTE | 2024-04-22 12:41 | CASEMGMT ---
Social Work SW met with pt and provided self pay resources. Informed pt of [employer], [employer], prescription assistance programs and [facility]. Pt denies any further concerns at this time. RYNE Cuevas
[2024-04-22 16:53] LABS: Bedside Glucose 198 mg/dL (74-106)
[2024-04-22] MEDS: Enoxaparin 40 MG/0.4 ML Syringe SC (21:13)
[2024-04-22] MEDS: 0.9% Saline Lock 10 ML Syringe IV (21:13)
[2024-04-22 22:21] LABS: Bedside Glucose 218 mg/dL (74-106)
[2024-04-23] MEDS: oxyCODONE 5 MG Tablet 2.5 MG PO ×3 (02:49→21:56)
[2024-04-23 03:06] VITALS: BP 161/79; PULSE 90; RESP 18; TEMP 37; O2SAT 93
[2024-04-23 04:47] LABS: Absolute Lymphocyte Count 1.21 X10^3/uL (0.83-4.51); Basophil# 0.03 X10^3/uL; Basophil% 0.2 % (0-1); Hematocrit 34.4 % (40-54); Hemoglobin 12.2 g/dL (13.0-16.5); Lymphocyte # 1.21 X10^3/ul (0.83-4.51); Lymphocyte % 8.5 % (19-41); Mean Corp Hgb Conc 35.5 g/dL (32-36); Mean Corpuscular Hgb 29.2 pg (27.0-32.0); Mean Corpuscular Volume 82.3 fL (80-94); Mean Platelet Vol. 9.4 fl (6.2-12.0); Monocyte# 0.93 X10^3/uL; Monocyte% 6.5 % (0-10); NRBC Flagged by Analyzer 0 % (0-5); Neutrophil # 12.04 X10^3/uL (2.7-7.7); Neutrophil % 84.3 % (47-70); Platelet Count 433 K/mm3 (150-450); RBC Distribution Width CV 12.5 % (11.6-14.6); Red Blood Count 4.18 M/mm3 (4.6-6.2); White Blood Count 14.3 K/mm3 (4.4-11.0)
[2024-04-23 05:09] LABS: Anion Gap 9 (5-15); BUN 12 mg/dL (7-18); BUN/Creat Ratio 29.8 RATIO (10-20); Calcium,Total 8.8 mg/dL (8.5-10.1); Chloride 108 mmol/L (98-107); EST Glomerular Filtration Rate 230 mL/min (>60); Est Glom Filt Rate - Afr Amer 278 mL/min (>60); Estimated Creatinine Clearance 153.06 ml/min; Glucose 182 mg/dL (74-106); Potassium 2.9 mmol/L (3.5-5.1); Sodium Level 138 mmol/L (136-145)
[2024-04-23] MEDS: Na Biphos/Potassium Phosphate PACKET 1 PACKET PO ×3 (05:48→21:57)
[2024-04-23] MEDS: Insulin Lispro 100 UNIT/ML INSULN.PEN SC ×4 (05:49→21:50)
[2024-04-23 06:18] LABS: Bedside Glucose 158 mg/dL (74-106)
[2024-04-23 07:50] VITALS: O2SAT 97
[2024-04-23 09:07] LABS: Phosphorus 1.5 mg/dL (2.5-4.9)
[2024-04-23 10:34] VITALS: BP 151/77; PULSE 94; RESP 18; TEMP 36.5; O2SAT 94
[2024-04-23] MEDS: Azithromycin 500 MG in 0.9% Normal Saline (250mL Bag) 250 ML 255 MG IV (10:43)
[2024-04-23] MEDS: guaiFENesin 1,200 MG Tablet 1200 MG PO ×2 (10:45→21:55)
[2024-04-23] MEDS: Oseltamivir Phosphate 75 MG Capsule PO ×2 (10:45→21:55)
[2024-04-23] MEDS: Pantoprazole Sodium 40 MG Tablet PO (10:45)
[2024-04-23] MEDS: Potassium Chloride Oral Tablet 20 MEQ 60 MEQ PO (10:56)
[2024-04-23] MEDS: Acetaminophen 325 MG Tablet 650 MG PO (10:56)
[2024-04-23] MEDS: Insulin Glargine-YFGN 100 UNIT/ML Pen 10 UNIT SC ×2 (10:59→21:49)
[2024-04-23] MEDS: 0.9% Saline Lock 10 ML Syringe IV (11:00)
--- NOTE | 2024-04-23 12:16 | NURSING ---
Pt stated he had an emesis about 5-10 min after giving him his scheduled meds and pain medication.
--- NOTE | 2024-04-23 12:30 | CASEMGMT ---
Addendum entered by Vandana Avalos 04/23/24 14:42: Pt requests an earlier appt, stating as early as possible, as he would like to go to work afterwards. Call placed back to [facility], appt changed to 04/29 @ 8:30 AM. This was changed on d/c plan. Pt also made aware and voices appreciation. Addendum entered by Vandnaa Avalos 04/23/24 14:27: Appt scheduled @ [facility] w/Justin, COMPENSATION ADMINISTRATOR, for 04/29 @ 11 AM. This was added to pt's dc plan. Pt made aware of appt. He states he can drive and plans to go to appt, as scheduled. He voices appreciation. Original Note: RYAN DELEON note: Per Dr Camilo, pt to discharge home on insulin. Jazmín RN, aware to do DM teaching as well as insulin administration. RYAN DELEON to room. Introduced self and role. Dr Camilo signed script for glucometer and this was provided to pt. However, pt does not have insurance. Pt given script, but also made aware of OTC glucometer option and made aware of locations this could be purchased. He voices appreciation. Discussed CCN and pt interested in referral. Referral order placed. Pt also provided w/CCN rac card w/contact info. Pt interested in appt @ [facility]. He denies other dc needs at this time. Anshu LEDESMA RN, CM
--- NOTE | 2024-04-23 12:40 | PN.HOSP_ITS ---
Reason for Visit Reason for Visit: Diagnoses Type 2 diabetes mellitus with ketoacidosis without coma (04/21/24) Influenza due to other identified influenza virus with other respiratory manifestations (04/21/24) Subjective Subjective Saw patient at bedside this morning. Patient was mildly uncomfortable appearing due to ongoing nausea, mild abdominal discomfort and mild chest pain due to persistent cough. Has not been able to eat or drink much due to minimal appetite and nausea. Feels similar to yesterday without much improvement. Denies any fevers or chills. Objective Data Objective Data Vital Signs: Vital Signs Temp Pulse Resp BP Pulse Ox O2 Del Method 97.7 F L 94 18 151/77 H 94 Room Air 04/23/24 10:34 04/23/24 10:34 04/23/24 10:34 04/23/24 10:34 04/23/24 10:34 04/23/24 10:34 Oxygen Delivery Method Room Air Weight: 54.7 kg Body Mass Index (BMI) 20.0 Intake & Output: Intake and Output for Last 24 Hours 04/21/24 04/22/24 04/23/24 23:59 23:59 23:59 Intake Total 1427.57 / 1427.57 3746.58 / 3746.58 120 / 120 Output Total 550 / 550 Balance 1427.57 / 1427.57 3196.58 / 3196.58 120 / 120 Lab / Micro Data 04/23/24 04:33 04/23/24 04:33 Labs: Laboratory Results - last 24 hr 04/22/24 16:17: POC Glucose 198 H 04/22/24 21:16: POC Glucose 218 H 04/23/24 04:33: WBC 14.3 H, RBC 4.18 L, Hgb 12.2 L, Hct 34.4 L, MCV 82.3, MCH 29.2, MCHC 35.5, RDW Std Deviation 38.0, RDW Coeff of Gertrudis 12.5, Plt Count 433, MPV 9.4, Immature Gran % (Auto) 0.500, Neut % (Auto) 84.3 H, Lymph % (Auto) 8.5 L, [place] % (Auto) 6.5, Eos % (Auto) 0.0, Baso % (Auto) 0.2, Absolute Neuts (auto) 12.0 H, Absolute Lymphs (auto) 1.21, Nucleated RBC % 0, Sodium 138, Potassium 2.9 L, Chloride 108 H, Carbon Dioxide 20.0 L, Anion Gap 9, BUN 12, Creatinine 0.40 L, Estim Creat Clear Calc 153.06, Est GFR (MDRD) Af Amer 278, Est GFR (MDRD) Non-Af 230, BUN/Creatinine Ratio 29.8 H, Glucose 182 H, Calcium 8.8, P hosphorus 1.5 L 04/23/24 05:49: POC Glucose 158 H Micro: Microbiology 04/22/24 16:25 Urine, Clean Catch Legionella Antigen - Final 04/22/24 16:25 Urine, Clean Catch Streptococcus pneumoniae Antigen (M - Final 04/22/24 01:07 Nasal Secretion MRSA (PCR) - Final 04/21/24 14:40 Mucosa - Nose SARS-CoV-2, Influenza & RSV (PCR) - Final Influenzae A Physical Exam Const alert, oriented x3 and average body habitus Constitutional Narrative: Middle-age male, mildly fatigued and uncomfortable appearing due to ongoing nausea but otherwise answering questions appropriately. General Appearance: cooperative HEENT normocephalic, head/scalp atraumatic, hearing grossly normal bilaterally and nasal mucous membranes and turbinates normal Eyes PERRL, EOMs intact bilaterally and conjunctivae normal Chest inspection of chest normal Resp normal respiratory effort and no use of accessory muscles Resp Narrative: Breathing comfortably on room air at rest. Good breath sounds bilaterally throughout. Cardio regular rate, regular rhythm, no murmurs and peripheral pulses 2+ throughout GI normal to inspection, nondistended, normoactive bowel sounds, soft to palpation, non-tender and non-distended Back/Spine normal ROM Extremity normal to inspection, full ROM and no pedal edema Skin no rashes or lesions noted Psych mental status grossly normal Mood & Affect: anxious Assessment & Plan Assessment/Plan (1) DKA (diabetic ketoacidoses): (2) Influenza A: PLAN: Plan Patient is a 63-year-old male who presented [facility] ED on 04/21/2024 with URI symptoms. 1. DKA, resolved; new onset type 2 diabetes mellitus ? Labs on admit with glucose 477, anion gap 15 and bicarb 14. Resolved on insulin drip. A1c 10.7%. Transitioned to Lantus 10 units twice daily and sliding scale insulin with meals as needed. Blood sugars have been well- controlled on this but notably patient has had fairly minimal p.o. intake due to flu infection. Will need to determine most cost effective insulin regimen for patient prior to discharge. Patient will likely be stable for discharge in the next 1 to 2 days once he is tolerating p.o. intake better. 2. Influenza A infection with concern for superimposed bacterial infection ? Influenza A positive in the ED. Chest x-ray showed patchy airspace disease of right lower lung field concerning for pneumonia. Patient with cough and significant sputum production. Will continue treatment with IV antibiotics and Tamiflu and plan for 7-day course of antibiotics total. Stable on room air. 3. Hypokalemia and hypophosphatemia ? Presume secondary to poor p.o. intake and electrolyte balances due to DKA. Repleting as needed. DVT prophylaxis: Lovenox CODE STATUS: Full code, verified Expected disposition: Home, 1 to 2 days Total clinical time spent by myself addressing the patient's medical issues, reviewing all the data, and collaborating with patient's care team: 35 minutes. Charges/Coding Visit Charges Inpatient E&M: 65435 Subs Hosp L2
[2024-04-23] MEDS: Loperamide 2 MG Capsule PO (15:14)
[2024-04-23] MEDS: Ondansetron 4 MG/2 ML Vial IV (15:14)
[2024-04-23] MEDS: Ceftriaxone 2 GM in 0.9% Normal Saline (50mL MB+) 50 ML IV (15:23)
[2024-04-23 15:30] VITALS: BP 142/82; PULSE 79; RESP 18; TEMP 36.4; O2SAT 96
[2024-04-23 16:37] LABS: Bedside Glucose 201 mg/dL (74-106)
[2024-04-23 17:06] LABS: Bedside Glucose 203 mg/dL (74-106)
[2024-04-23 21:00] VITALS: BP 151/88; PULSE 84; RESP 18; TEMP 37; O2SAT 94
[2024-04-23] MEDS: Enoxaparin 40 MG/0.4 ML Syringe SC (21:54)
[2024-04-23 22:17] LABS: Bedside Glucose 189 mg/dL (74-106)
[2024-04-24 03:59] VITALS: BMI 19.5
[2024-04-24] MEDS: Acetaminophen 325 MG Tablet 650 MG PO ×2 (04:40→15:52)
[2024-04-24 04:43] VITALS: BP 140/76; PULSE 87; RESP 16; TEMP 36.9; O2SAT 95
[2024-04-24] MEDS: Na Biphos/Potassium Phosphate PACKET 1 PACKET PO (06:19)
[2024-04-24 06:37] LABS: Bedside Glucose 130 mg/dL (74-106)
[2024-04-24 08:06] LABS: Albumin, Serum 1.9 g/dL (3.2-5.0); BUN 16 mg/dL (7-18); BUN/Creat Ratio 36.8 RATIO (10-20); Calcium,Total 8.8 mg/dL (8.5-10.1); Chloride 104 mmol/L (98-107); Creatinine, Serum 0.44 mg/dL (0.70-1.30); EST Glomerular Filtration Rate 211 mL/min (>60); Est Glom Filt Rate - Afr Amer 255 mL/min (>60); Estimated Creatinine Clearance 132.66 ml/min; Glucose 135 mg/dL (74-106); Phosphorus 2.4 mg/dL (2.5-4.9); Potassium 2.9 mmol/L (3.5-5.1); Sodium Level 137 mmol/L (136-145)
[2024-04-24 08:24] VITALS: O2SAT 97
[2024-04-24 09:00] VITALS: BP 143/79; PULSE 77; RESP 18; TEMP 36.3; O2SAT 93
--- NOTE | 2024-04-24 09:58 | DS.PCM_ITS ---
Providers Date of Admission: 04/21/24 Date of Discharge: 04/24/24 Primary Care Physician: HETAL Hernandez, CATTLE DIPPER-C Reason For Visit: DKA Diagnosis Discharge Diagnosis (1) DKA (diabetic ketoacidoses): Status: Acute Code(s): E11.10 - Type 2 diabetes mellitus with ketoacidosis without coma (2) Influenza A: Status: Acute Code(s): J10.1 - Influenza due to other identified influenza virus with other respiratory manifestations Medications at Discharge Home Medications insulin NPH isoph U-100 human 100 unit/mL (3 mL) subcutaneous pen (Novolin N FlexPen) 15 unit (0.15 mL) subcut BID #15 mL 04/24/24 metformin 500 mg tablet 500 mg PO BID 30 days #60 tabs 04/24/24 oseltamivir 75 mg capsule 75 mg PO BID 2 days #4 caps 04/24/24 Hospital Course Operations None Procedures EKG and - (Chest x-ray) Summary of Care Provided Minutes Spent on Discharge: 35 Hospital Course: Patient is a 63-year-old male who presented [facility] ED on 04/21/2024 with URI symptoms. Hospital course as noted below. Patient discharged home in stable condition on 04/24. 1. DKA, resolved; new onset type 2 diabetes mellitus ? Labs on admit with glucose 477, anion gap 15 and bicarb 14. Resolved on insulin drip. A1c 10.7%. Transitioned to Lantus 10 units twice daily and sliding scale insulin with meals as needed. Blood sugars well-controlled on this but notably patient had fairly minimal p.o. intake due to flu infection. Given his low BMI and fairly well-controlled sugars here, opted to treat with conservative regimen on discharge. Given financial considerations, discharged on NPH 15 units twice daily and metformin 500 mg twice daily. 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 Has outpatient follow-up appointment at [facility] on 04/29 and further changes can be made at that time as needed. 2. Influenza A infection with concern for superimposed bacterial infection ? Influenza A positive in the ED. Chest x-ray showed patchy airspace disease of right lower lung field concerning for pneumonia. Patient with cough and mild sputum production. Treated with Tamiflu and IV antibiotics while here, will opt to treat with 5-day course of Tamiflu but can discontinue antibiotics on discharge. Remained stable on room air during hospitalization. 3. Hypokalemia and hypophosphatemia ? Presume secondary to poor p.o. intake and electrolyte balances due to DKA. Repleted as needed. Total clinical time spent by myself addressing the patient's medical issues, reviewing all the data, and collaborating with patient's care team: 35 minutes. Physical Exam Const alert, oriented x3 and average body habitus Constitutional Narrative: Middle-age male, energy much improved from previous days, sitting up comfortably in bed in no acute distress. General Appearance: cooperative and comfortable HEENT normocephalic, head/scalp atraumatic, hearing grossly normal bilaterally and nasal mucous membranes and turbinates normal Eyes PERRL, EOMs intact bilaterally and conjunctivae normal Chest inspection of chest normal Resp normal respiratory effort and no use of accessory muscles Resp Narrative: Breathing comfortably on room air at rest. Good breath sounds bilaterally throughout. Cardio regular rate, regular rhythm, no murmurs and peripheral pulses 2+ throughout GI normal to inspection, nondistended, normoactive bowel sounds, soft to palpation, non-tender and non-distended Back/Spine normal ROM Extremity normal to inspection, full ROM and no pedal edema Skin no rashes or lesions noted Psych mental status grossly normal Weight / BMI Weight Weight: 53.2 kg Body Mass Index (BMI) 19.5 ABG / Lab / Microbiology Data 04/23/24 04:33 04/24/24 06:47 Laboratory: Laboratory Results - last 24 hr 04/23/24 12:57: POC Glucose 201 H 04/23/24 16:47: POC Glucose 203 H 04/23/24 21:48: POC Glucose 189 H 04/24/24 06:18: POC Glucose 130 H 04/24/24 06:47: Sodium 137, Potassium 2.9 L, Chloride 104, Carbon Dioxide 24.0, BUN 16, Creatinine 0.44 L, Estim Creat Clear Calc 132.66, Est GFR (MDRD) Af Amer 255, Est GFR (MDRD) Non-Af 211, BUN/Creatinine Ratio 36.8 H, Glucose 135 H, Calcium 8.8, Phosphorus 2.4 L, Albumin 1.9 L 04/24/24 11:58: POC Glucose 289 H Microbiology: Microbiology 04/23/24 17:15 Sputum, Expectorated/Coughed Gram Stain - Final 04/23/24 17:15 Sputum, Expectorated/Coughed Respiratory Culture - Preliminary Staphylococcus aureus 04/21/24 18:00 Blood Culture (Wb) - Anticubital Right Blood Culture - Preliminary No growth in 48 hours. 04/21/24 18:00 Blood Culture (Wb) - Anticubital Right Blood Culture - Preliminary No growth in 48 hours. 04/22/24 16:25 Urine, Clean Catch Legionella Antigen - Final 04/22/24 16:25 Urine, Clean Catch Streptococcus pneumoniae Antigen (M - Final 04/22/24 01:07 Nasal Secretion MRSA (PCR) - Final 04/21/24 14:40 Mucosa - Nose SARS-CoV-2, Influenza & RSV (PCR) - Final Influenzae A D/C Instructions DC O2, CPAP, BIPAP Needs Home O2 Discharge instructions: No Meaningful Use Info Meaningful Use Meaningful Use Diagnoses (Choose all that apply): None applicable Ischemic Stroke Statin Dosing Therapy Reference: STATIN DOSE THERAPY REFERENCE: * Patients > 75 years receive moderate or high dose statin therapy. * Patients 75 years or YOUNGER should receive HIGH intensity statin dose unless contraindicated. You will be required to document reason for non-treatment if statin daily dose does not meet guidelines. HIGH DOSE STATIN THERAPY DAILY Atorvastatin > than or = to 40 mg Rosuvastatin > than or = to 20 mg Amlodipine + Atorvastatin > than or = to 2.5/40 mg Ezetimibe + Simvastatin 10/80 mg Simvastatin 80mg Discharge Plan Admission Admit Date/Time: 04/21/24 17:12 Primary Reason for Your Visit: flulike symptoms Attending Provider: Umesh Camilo Primary Care Provider: Randy Fernández [facility] Consulting Providers: Sonu Quan Instructions Additional Instructions / Restrictions: Please take insulin NPH 15 units twice daily and metformin 1 tablet twice daily for your diabetes. Please take 2 more days of Tamiflu to complete a 5-day course for your flu infection. Follow up with your new primary care doctor next week as scheduled below. Discharge Orders/Prescriptions Prescriptions: New oseltamivir 75 mg Capsule 75 mg PO BID 2 Days Qty: 4 0RF metformin 500 mg tablet 500 mg PO BID 30 Days Qty: 60 0RF Novolin N FlexPen 100 unit/mL (3 mL) insulin pen 15 unit subcut BID Qty: 15 0RF Other Ambulatory Orders: Glucometer (Routine) Timeframe: 1 Day Location: Determined by Patient Ordered By: Dr. Umesh Camilo Referrals / Follow Up: Randy Fernández, CATTLE DIPPER-C [Primary Care Provider] - 04/29/24 8:30 am Disposition Disposition (needs filled in before D/C Order can be placed): Home, Self Care Charges/Coding Visit Charges Inpatient E&M: 98576 Disch Hosp >30min
--- NOTE | 2024-04-24 09:58 | DCINST_ITS ---
Discharge Instructions Diet Discharge Diet: No restrictions DC O2, CPAP, BIPAP needs Home O2 Discharge instructions: No Dressing / Incision Discharge Activity: No Restrictions Follow Up Care Test Results: Test results from this visit will be discussed in further detail at your follow- up appointment, if applicable. Discharge Plan Admission Admit Date/Time: 04/21/24 17:12 Primary Reason for Your Visit: flulike symptoms Attending Provider: Umesh Camilo Primary Care Provider: Randy Fernández Consulting Providers: Sonu Quan Instructions Additional Instructions / Restrictions: Please take insulin NPH 15 units twice daily and metformin 1 tablet twice daily for your diabetes. Please take 2 more days of Tamiflu to complete a 5-day course for your flu infection. Follow up with your new primary care doctor next week as scheduled below. Discharge Orders/Prescriptions Prescriptions: New oseltamivir 75 mg Capsule 75 mg PO BID 2 Days Qty: 4 0RF metformin 500 mg tablet 500 mg PO BID 30 Days Qty: 60 0RF Novolin N FlexPen 100 unit/mL (3 mL) insulin pen 15 unit subcut BID Qty: 15 0RF Other Ambulatory Orders: Glucometer (Routine) Timeframe: 1 Day Location: Determined by Patient Ordered By: Dr. Umesh Camilo Referrals / Follow Up: Randy Fernández, VANSTONE MACHINE OPERATOR-C [Primary Care Provider] - 04/29/24 8:30 am Disposition Disposition (needs filled in before D/C Order can be placed): Home, Self Care
[2024-04-24] MEDS: Ceftriaxone 2 GM in 0.9% Normal Saline (50mL MB+) 50 ML IV (10:08)
[2024-04-24] MEDS: Oseltamivir Phosphate 75 MG Capsule PO (10:13)
[2024-04-24] MEDS: guaiFENesin 1,200 MG Tablet 1200 MG PO (10:13)
[2024-04-24] MEDS: Pantoprazole Sodium 40 MG Tablet PO (10:13)
[2024-04-24] MEDS: Insulin Glargine-YFGN 100 UNIT/ML Pen 10 UNIT SC (10:16)
[2024-04-24] MEDS: Azithromycin 500 MG in 0.9% Normal Saline (250mL Bag) 250 ML 255 MG IV (11:04)
--- NOTE | 2024-04-24 11:38 | NURSING ---
This RN is aware of Vital Signs taken this morning at 9am by Aly Rollins, Student Nurse.
[2024-04-24] MEDS: Insulin Lispro 100 UNIT/ML INSULN.PEN SC (12:03)
[2024-04-24] MEDS: Ondansetron 4 MG/2 ML Vial IV (12:26)
[2024-04-24 12:53] LABS: Bedside Glucose 289 mg/dL (74-106)
[2024-04-24] MEDS: Potassium Chloride Oral Tablet 20 MEQ 60 MEQ PO (13:03)
--- NOTE | 2024-04-24 13:25 | CASEMGMT ---
Addendum entered by Vandana Avalos 04/24/24 14:00: Scripts for Novolin N Pen and Pen needles provided to Jazmín DAVIS, who will give to pt and Nivia ennis. Nivia to present these @ [facility] for purchase. Original Note: RYAN DELEON NOTE: Pt being discharged today. Pt will dc home on Insulin and nursing has been doing on-going education w/pt on DM and insulin administration. Discussed insulin and pricing with pt, as he is self-pay. Prices obtained from [facility] and [facility] pharmacy. Per Lexx, pharmacist @ [facility], they now have Reli-On Novolin N Pens that are $42.88/pen, OTC, and the pen needles are $9. He verified that they do have the Novolin N Pens in stock. They still have the option of insulin vials and syringes as well. Pt chose to get Insulin pen and pen needles @ [facility] and states he can afford to purchase these. Pt made aware scripts will be provided for both of these, and these can be presented to [facility] pharmacy to purchase. He states it will most likely be his nieceNivia, that will be going into [facility] to get this. RYAN DELEON placed call to pt's Nivia ennis, @ [phone], per pt's request, and she was made aware of above. Questions answered. She voices understanding. Also discussed glucometer and pricing @ [facility] and also @ [facility]. Glucometer, lancing device, lancets, 50 test strips, and alcohol swabs totals $33.94 from [facility] and pt states will get this from [facility], would like it delivered to his room, and would like education on this machine from nurse before discharging home. Nursing aware. Call placed to [facility]. In addition to the above stated cost for glucometer and supplies and Rx's for tamiflu and glucophage is $61.74. Pt states he can afford this and asked this RYAN DELEON to assist him w/paying for this over the phone. Card information provided to the pharmacy while RYAN DELEON in pt's room and card given back to pt after call completed. Pt voices appreciation. Pharmacy to deliver glucometer, supplies, and Rx's to pt's room and nursing to educate pt on how to use glucometer. Per Stanley @ [facility], they are not able to see pt until mid to late next week, pt made aware, and is agreeable to same. Pt voices denies having other discharge needs/concerns at this time. Anshu BSN RN CM
[2024-04-24 15:00] VITALS: BP 140/80; PULSE 77; RESP 20; TEMP 36.8; O2SAT 93
[2024-04-24] MEDS: Loperamide 2 MG Capsule PO (15:52)
--- NOTE | 2024-04-27 13:24 | CCN.REFER ---
MULTIPLE CALLS TO PATIENT TO DISCUSS CCN. NO ANSWER AND NO VM TO LEAVE A MESSAGE.
--- NOTE | 2024-05-05 11:32 | CCN.REFER ---
UNABLE TO REACH PATIENT AFTER MULTIPLE PHONE CALLS TO [phone] AND ER CONTACT [phone]
== END 2024-04-24 17:53 | disposition home or self-care (01) | DRG 639 ==
LOC: ED 14:58 → ICU 18:47 → MS2 04-22 18:18
PROVIDERS: Admitting Provider Internal Medicine; Emergency Provider Surgery; Visit Provider Hospitalist
DX: E11.10 Type 2 diabetes mellitus with ketoacidosis without coma (principal); E83.39 Other disorders of phosphorus metabolism; E11.65 Type 2 diabetes mellitus with hyperglycemia; E87.6 Hypokalemia; J10.89 Influenza due to other identified influenza virus with other manifestations
CPT/HCPCS: 36415; 71046; 80048; 80069; 81001; 82009; 82803; 82962; 83036; 83735; 83930; 84100; 85025; 87040; 87070; 87077; 87186; 87205; 87449; 87631; 87641; 93005; 94762; 97802; 99285; A4216; J0696; J2405